=== PATIENT | male | born 1935 | race Caucasian/White ===

== ENCOUNTER 2017-07-09 10:04 | Emergency (ER) | payer OTHER ==
[2017-07-09 10:05] VITALS: BMI 41.7
[2017-07-09 10:15] VITALS: RESP 18
[2017-07-09 11:18] VITALS: BP 169/71; PULSE 75; TEMP 98.5; O2SAT 98
--- NOTE | 2017-07-09 11:28 | ED PDOC ---
Arrival/HPI - General Chief Complaint: ENT Problem Time Seen by Provider: 07/09/17 10:27 Historian: Patient, Family (daughter (translates)) - History of Present Illness Narrative History of Present Illness (Text): 07/09/17 11:12 A 82 year old male, whose past medical history includes hypertension and peripheral edema, whom is accompanied by daughter (translating for patient in [place]), presents to the emergency department complaining of right ear pain with internal discharge. Patient reports in [place], was given Amoxicillin to take for 7 days was then given further treatment and prescribed Augmentin 875 mg taken twice daily for 7 days. Patient was later given Garamicin gel for ear, but has had no relief of symptoms. Patient denies any hearing changes, ringing of ears, fever, sore throat, nasal congestion, or any other complaints at this time. PMD: Dr. Jenna Hill Past Medical History - Provider Review Nursing Documentation Reviewed: Yes - Travel History Have you recently traveled outside [place] w/in the past 3 mons?: Yes If Yes, travel location?: [place] - Infectious Disease Hx of Infectious Diseases: None - Tetanus Immunization Tetanus Immunization: Unknown - Past Medical History Past Medical History: No Previous - Cardiac Hx Cardiac Disorders: Yes Hx Hypertension: Yes Hx Peripheral Edema: Yes - Pulmonary Hx Respiratory Disorders: No - Neurological Hx Neurological Disorder: Yes Hx Dizziness: Yes - HEENT Hx HEENT Disorder: Yes (Bilateral cerumen impaction.) Hx Cataracts: Yes (Bilateral.) Hx Deafness: No Hx Glaucoma: No - Renal Hx Renal Disorder: No - Endocrine/Metabolic Hx Endocrine Disorders: Yes Hx Diabetes Mellitus Type 2: Yes - Hematological/Oncological Hx Blood Disorders: No - Integumentary Hx Dermatological Disorder: No - Musculoskeletal/Rheumatological Hx Musculoskeletal Disorders: Yes Hx Falls: Yes - Gastrointestinal Hx Gastrointestinal Disorders: No - Genitourinary/Gynecological Hx Genitourinary Disorders: No - Psychiatric Hx Psychophysiologic Disorder: No Hx Substance Use: No - Past Surgical History Past Surgical History: No Previous - Anesthesia Hx Anesthesia: No Hx Anesthesia Reactions: No Hx Malignant Hyperthermia: No - Suicidal Assessment Feels Threatened In Home Enviroment: No Family/Social History - Physician Review Nursing Documentation Reviewed: Yes Family/Social History: No Known Family HX Smoking Status: Never Smoked Hx Alcohol Use: No Hx Substance Use: No Hx Substance Use Treatment: No Allergies/Home Meds Allergies/Adverse Reactions: Allergies No Known Allergies Allergy (Verified 09/13/14 16:08) Review of Systems - Physician Review All systems were reviewed & negative as marked: Yes - Review of Systems Constitutional: absent: Fevers ENT: Other (right ear pain with internal discharge; no ringing in ears). absent : Hearing Changes, Sore Throat, Sinus Congestion Physical Exam Vital Signs Reviewed: Yes Vital Signs Temp Pulse Resp BP Pulse Ox 07/09/17 11:17 98.5 F 75 18 169/71 H 98 07/09/17 10:10 98.7 F 77 18 177/79 H 95 Temperature: Afebrile Blood Pressure: Normal Pulse: Regular Respiratory Rate: Normal Appearance: Positive for: Well-Appearing Pain Distress: None Mental Status: Positive for: Alert and Oriented X 3 - Systems Exam Ears: Present: Other (left ear normal examination; no mastoid tenderness). No: NORMAL TM (right ear shows yellow pus behind TM), Erythema (right ear), Normal Canal (right ear yellow trace/discharge) Medical Decision Making ED Course and Treatment: 07/09/17 11:15 Impression: 82 year old male with right ear pain with internal discharge. Physical exam shows right ear yellow pus behind TM, ear canal shows no erythema , yellow trace/discharge; left ear normal exam. Differential Diagnosis included but are not limited to: Otitis Media. Plan: -- Fingerstick -- Reassess and disposition Progress Notes: Case was discussed with Dr. Matthew, ENT. Since patient has not completely improved with Amox/Augmentin as noted, he recommends Ceftin and Ciprodex drops. I advised pt and daughter to make sure he takes medications as prescribed and to return to the ED if symptoms worsen or any other concern and to f/u with ENT Dr. Matthew. - Lab Interpretations Lab Results: Lab Results 07/09/17 11:33: POC Glucose (mg/dL) 169 H - Scribe Statement The provider has reviewed the documentation as recorded by the Abran Granados Provider Scribe Attestation: All medical record entries made by the Scribe were at my direction and personally dictated by me. I have reviewed the chart and agree that the record accurately reflects my personal performance of the history, physical exam, medical decision making, and the department course for this patient. I have also personally directed, reviewed, and agree with the discharge instructions and disposition. Disposition/Present on Arrival - Present on Arrival Any Indicators Present on Arrival: No History of DVT/PE: No History of Uncontrolled Diabetes: No Urinary Catheter: No History of Decub. Ulcer: No History Surgical Site Infection Following: None - Disposition Have Diagnosis and Disposition been Completed?: Yes Diagnosis: Otitis media Disposition: HOME/ ROUTINE Disposition Time: 12:07 Patient Plan: Discharge Condition: GOOD Discharge Instructions (ExitCare): Ear Infections (Otitis Media) Additional Instructions: Ms Avilez, thank you for letting us take care of you today. Your provider was Dr. Boswell. You were treated for Right Otitis Media. The emergency medical care you received today was directed at your acute symptoms. If you were prescribed any medication, please fill it and take as directed. It may take several days for your symptoms to resolve. Return to the Emergency Department if your symptoms worsen, do not improve, or if you have any other problems. Please contact your doctor or call one of the physicians/clinics you have been referred to that are listed on the Patient Visit Information form that is included in your discharge packet. Bring any paperwork you were given at discharge with you along with any medications you are taking to your follow up visit. Our treatment cannot replace ongoing medical care by a primary care provider (PCP) outside of the emergency department. Thank you for allowing the [facility] team to be part of your care today. If you had an X-Ray or CT scan: A Radiologist will review the ED reading if any change in treatment is needed we will contact you. If you had a blood, urine, or wound culture: It will take several days for the results, if any change in treatment is needed we will contact you. If you had an STI test: It will take 48 hours for the results. Please call after 1 week if you have not heard back. Prescriptions: Cefuroxime Axetil [Cefuroxime] 250 mg PO BID #20 tablet Ciprofloxacin/Dexamethasone [Ciprodex 0.3%-0.1% 7.5 Ml] 4 drop OT BID #1 bottle Referrals: Al Matthew DO [Staff Provider] - Follow up with primary Jenna Hill APN-C [Primary Care Provider] - Follow up with primary Forms: [employer] (Surinamese)
== END 2017-07-09 12:07 | disposition home or self-care (01) ==
LOC: ED 10:04
DX: H66.91 Otitis media, unspecified, right ear (principal); E11.9 Type 2 diabetes mellitus without complications

== ENCOUNTER 2018-08-27 16:15 | Outpatient (CLI) | payer OTHER | END 2018-08-27 16:16 | disposition home or self-care (01) | LOC: LAB 16:15 ==